=== PATIENT | female | born 1990 | race Caucasian/White ===

== ENCOUNTER 2018-12-24 17:08 | Emergency (ER) | payer MEDICAID ==
[~2018-12-24] VITALS: Ht 157.5 cm; Wt 80.0 kg
[2018-12-24 17:10] VITALS: Ht 157.5 cm; Wt 80.0 kg
[2018-12-24] MEDS ORDERED: OMEPRAZOLE40 MG PO (17:13)
[2018-12-24] MEDS ORDERED: CALAN120 MG PO (17:13)
[2018-12-24] MEDS ORDERED: OXTELLAR (17:14)
[2018-12-24] MEDS ORDERED: PHENERGAN25 M1 PO (17:14)
[2018-12-24] MEDS ORDERED: PROMETRIUM200 MG PO (17:14)
[2018-12-24] MEDS ORDERED: LIDODERM 5 %1 PATCH TRANSDERM (17:15)
[2018-12-24] MEDS ORDERED: ULTRAM50 MG PO (17:15)
[2018-12-24] MEDS ORDERED: ZOFRAN4 MG PO (17:15)
[2018-12-24] MEDS ORDERED: DILAUD1MGAMP IV (17:15)
[2018-12-24] MEDS ORDERED: MELATONIN5 MG PO (17:16)
[2018-12-24] MEDS ORDERED: BENADRYL25 MG PO (17:16)
[2018-12-24] MEDS ORDERED: STEROID (17:16)
[2018-12-24 20:09] VITALS: BP 138/85
[2018-12-25] MEDS ORDERED: STADOL NASAL S2.5 ML NASAL (22:05)
== END 2018-12-24 20:09 | disposition home or self-care (01) ==
LOC: D.ER 17:08
DX: G50.0 Trigeminal neuralgia (principal); F41.9 Anxiety disorder, unspecified; M54.81 Occipital neuralgia

== ENCOUNTER 2018-12-25 18:25 | Emergency (ER) | payer MEDICAID ==
[~2018-12-25] VITALS: Ht 157.5 cm; Wt 80.9 kg
[~2018-12-25 18:25] MED LIST: BENADRYL25 MG PO; CALAN120 MG PO; DILAUD1MGAMP IV; LIDODERM 5 %1 PATCH TRANSDERM; MELATONIN5 MG PO; OMEPRAZOLE40 MG PO; OXTELLAR; PHENERGAN25 M1 PO; PROMETRIUM200 MG PO; STEROID; ULTRAM50 MG PO; ZOFRAN4 MG PO
[2018-12-25 19:01] VITALS: Ht 157.5 cm; Wt 80.9 kg
[2018-12-25] MEDS ORDERED: STADOL NASAL S2.5 ML NASAL (22:05)
[2018-12-25 23:10] VITALS: BP 138/79
== END 2018-12-25 23:10 | disposition home or self-care (01) ==
LOC: D.ER 18:25
DX: G50.0 Trigeminal neuralgia (principal)

== ENCOUNTER 2018-12-30 10:30 | Emergency (ER) | payer MEDICAID ==
[~2018-12-30] VITALS: Ht 157.5 cm; Wt 81.8 kg
[~2018-12-30 10:30] MED LIST changes: +STADOL NASAL S2.5 ML NASAL
[2018-12-30 10:43] VITALS: Ht 157.5 cm; Wt 81.8 kg
[2018-12-30 13:12] VITALS: BP 140/82
== END 2018-12-30 13:12 | disposition home or self-care (01) ==
LOC: D.ER 10:30
DX: G50.0 Trigeminal neuralgia (principal); G43.909 Migraine, unspecified, not intractable, without status migrainosus

== ENCOUNTER 2019-01-01 17:36 | Emergency (ER) | payer MEDICAID ==
[~2019-01-01] VITALS: Ht 157.5 cm; Wt 81.8 kg
[2019-01-01 17:43] VITALS: Ht 157.5 cm; Wt 81.8 kg
[2019-01-01] MEDS ORDERED: STADOL NASAL S2.5 ML NASAL (19:06)
[2019-01-01 19:31] VITALS: BP 138/88
== END 2019-01-01 19:30 | disposition home or self-care (01) ==
LOC: D.ER 17:36
DX: G50.0 Trigeminal neuralgia (principal)

== ENCOUNTER 2019-01-04 19:57 | Emergency (ER) | payer MEDICAID ==
[~2019-01-04] VITALS: Ht 157.5 cm; Wt 81.8 kg
[2019-01-04 20:00] VITALS: Ht 157.5 cm; Wt 81.8 kg
[2019-01-04] MEDS ORDERED: ZANAFLEX4 MG PO (20:05)
[2019-01-04 21:45] VITALS: BP 159/104
== END 2019-01-04 21:50 | disposition home or self-care (01) ==
LOC: D.ER 19:57
DX: G50.0 Trigeminal neuralgia (principal); G89.29 Other chronic pain; M54.81 Occipital neuralgia

== ENCOUNTER 2019-01-06 20:36 | Emergency (ER) | payer MEDICAID ==
[~2019-01-06] VITALS: Ht 157.5 cm; Wt 81.6 kg
[~2019-01-06 20:36] MED LIST changes: +ZANAFLEX4 MG PO
[2019-01-06 20:57] VITALS: Ht 157.5 cm; Wt 81.6 kg
[2019-01-06 22:16] VITALS: BP 124/88
[2019-01-07] MEDS ORDERED: PREDNISONE10 MG PO (16:27)
== END 2019-01-06 21:55 | disposition home or self-care (01) ==
LOC: D.ER 20:36
DX: G50.0 Trigeminal neuralgia (principal)

== ENCOUNTER 2019-01-07 14:49 | Emergency (ER) | payer MEDICAID ==
[~2019-01-07] VITALS: Ht 157.5 cm; Wt 81.8 kg
[2019-01-07 15:12] VITALS: Ht 157.5 cm; Wt 81.8 kg
[2019-01-07] MEDS ORDERED: PREDNISONE10 MG PO (16:27)
[2019-01-07 17:15] VITALS: BP 146/87
== END 2019-01-07 17:15 | disposition home or self-care (01) ==
LOC: D.ER 14:49
DX: G50.0 Trigeminal neuralgia (principal); M54.81 Occipital neuralgia

== ENCOUNTER 2019-01-09 19:23 | Emergency (ER) | payer MEDICAID ==
[~2019-01-09 19:23] MED LIST changes: +PREDNISONE10 MG PO
[2019-01-09 19:30] VITALS: BMI 33.0
[2019-01-09] MEDS ORDERED: KLONOPIN1 MG PO (21:15)
[2019-01-09 21:28] VITALS: BP 145/95
== END 2019-01-09 21:28 | disposition home or self-care (01) ==
LOC: D.ER 19:23
DX: G50.0 Trigeminal neuralgia (principal)

== ENCOUNTER 2019-01-10 15:02 | Emergency (ER) | payer MEDICAID ==
[~2019-01-10] VITALS: Ht 157.5 cm; Wt 81.8 kg
[~2019-01-10 15:02] MED LIST changes: +KLONOPIN1 MG PO
[2019-01-10 15:12] VITALS: Ht 157.5 cm; Wt 81.8 kg
[2019-01-10 20:16] VITALS: BP 126/77
== END 2019-01-10 20:19 | disposition home or self-care (01) ==
LOC: D.ER 15:02
DX: G50.0 Trigeminal neuralgia (principal)

== ENCOUNTER 2019-01-18 17:28 | Emergency (ER) | payer MEDICAID ==
[~2019-01-18] VITALS: Ht 157.5 cm; Wt 81.8 kg
[2019-01-18 17:38] VITALS: Ht 157.5 cm; Wt 81.8 kg
[2019-01-18 20:54] VITALS: BP 118/64
== END 2019-01-18 21:01 | disposition home or self-care (01) ==
LOC: D.ER 17:28
DX: G50.0 Trigeminal neuralgia (principal)

== ENCOUNTER 2019-02-01 17:41 | Emergency (ER) | payer MEDICAID ==
[~2019-02-01] VITALS: Ht 157.5 cm; Wt 81.8 kg
[2019-02-01 17:50] VITALS: Ht 157.5 cm; Wt 81.8 kg
[2019-02-01] MEDS ORDERED: CALAN120 MG PO (17:55)
[2019-02-01] MEDS ORDERED: ZOFRAN8 MG PO (17:56)
[2019-02-01] MEDS ORDERED: GABAPENTIN100 MG PO ×2 (17:57)
[2019-02-01] MEDS ORDERED: MORPHINE IMMEDI15 MG PO (17:58)
[2019-02-01] MEDS ORDERED: IBUPROFEN400 MG PO (17:59)
[2019-02-01 22:50] VITALS: BP 136/91
== END 2019-02-01 22:51 | disposition home or self-care (01) ==
LOC: D.ER 17:41
DX: G50.0 Trigeminal neuralgia (principal); M54.81 Occipital neuralgia

== ENCOUNTER 2019-02-17 16:18 | Emergency (ER) | payer MEDICAID ==
[~2019-02-17] VITALS: Ht 157.5 cm; Wt 81.8 kg
[~2019-02-17 16:18] MED LIST changes: +GABAPENTIN100 MG PO; +IBUPROFEN400 MG PO; +MORPHINE IMMEDI15 MG PO; +ZOFRAN8 MG PO
[2019-02-17 16:24] VITALS: Ht 157.5 cm; Wt 81.8 kg
[2019-02-17 18:50] VITALS: BP 123/69
== END 2019-02-17 18:50 | disposition home or self-care (01) ==
LOC: D.ER 16:18
DX: G50.0 Trigeminal neuralgia (principal)

== ENCOUNTER 2019-02-23 15:13 | Emergency (ER) | payer MEDICAID ==
[~2019-02-23] VITALS: Ht 157.5 cm; Wt 81.8 kg
[2019-02-23 15:18] VITALS: Ht 157.5 cm; Wt 81.8 kg
[2019-02-23 17:21] VITALS: BP 130/76
== END 2019-02-23 17:21 | disposition home or self-care (01) ==
LOC: D.ER 15:13
DX: G50.0 Trigeminal neuralgia (principal)

== ENCOUNTER 2019-02-25 20:12 | Emergency (ER) | payer MEDICAID ==
[~2019-02-25] VITALS: Ht 157.5 cm; Wt 81.8 kg
[2019-02-25 20:48] VITALS: Ht 157.5 cm; Wt 81.8 kg
[2019-02-25 22:27] VITALS: BP 136/84
== END 2019-02-25 22:28 | disposition home or self-care (01) ==
LOC: D.ER 20:12
DX: G50.0 Trigeminal neuralgia (principal); R51 Headache

== ENCOUNTER 2019-02-28 09:31 | Emergency (ER) | payer MEDICAID ==
[~2019-02-28] VITALS: Ht 157.5 cm; Wt 79.5 kg
[2019-02-28 09:45] VITALS: Ht 157.5 cm; Wt 79.5 kg
[2019-02-28 11:09] VITALS: BP 135/60
== END 2019-02-28 11:11 | disposition home or self-care (01) ==
LOC: D.ER 09:31
DX: G50.0 Trigeminal neuralgia (principal); R51 Headache

== ENCOUNTER 2019-03-08 22:39 | Emergency (ER) | payer MEDICAID ==
[~2019-03-08] VITALS: Ht 157.5 cm; Wt 81.8 kg
[2019-03-08 22:51] VITALS: Ht 157.5 cm; Wt 81.8 kg
[2019-03-08] MEDS ORDERED: GABAPENTIN100 MG PO (22:53)
[2019-03-08] MEDS ORDERED: LYRICA75 MG PO (22:54)
[2019-03-09 01:38] VITALS: BP 134/96
== END 2019-03-09 00:44 | disposition home or self-care (01) ==
LOC: D.ER 22:39
DX: G50.0 Trigeminal neuralgia (principal); R51 Headache